=== PATIENT | female | born 1950 ===

== ENCOUNTER → 2020-07-01 08:00 | Outpatient (CLI) | payer OTHER ==
[~2020-07-01 08:00] MED LIST: SYNTHROID88 MCG PO; TENORMIN50 M1 PO
== END | disposition home or self-care (01) ==
LOC: LAB 08:00 → ADM 09:30 → CIR.AMB 07-02 09:30 → EDSTATUS 07-02 09:30
PROVIDERS: ATTEND Anesthesiology Pain Medicine
DX: G90.522 Complex regional pain syndrome I of left lower limb (principal); Z20.828 Contact with and (suspected) exposure to other viral communicable diseases; Z01.812 Encounter for preprocedural laboratory examination